=== PATIENT | male | born 1950 | race Caucasian/White ===

== ENCOUNTER → 2024-10-25 11:41 | Outpatient (REF) | payer MEDICARE, SELFPAY | LOC: HWRAD 11:41 | PROVIDERS: ATTENDING PHYSICIAN Family Medicine | DX: R31.0 Gross hematuria (principal) | CPT/HCPCS: 74176 ==

== ENCOUNTER → 2024-10-31 07:48 | Outpatient (REF) | payer MEDICARE, SELFPAY ==
[2024-10-31 09:03] LABS: Hematocrit 43.9 % (39.0-52.0); Hemoglobin 14.8 g/dL (13.0-18.0); Mean Corp Hgb Conc. 33.7 g/dL (33.0-37.0); Mean Corpuscular Hgb 31.1 pg (27.0-31.0); Mean Corpuscular Volume 92.2 fL (80.0-94.0); Mean Platelet Volume 10.3 fL (7.4-10.4); Platelet Count 250 10^3/uL (130-400); Red Blood Cell Count 4.76 10^6/uL (4.70-6.10); White Blood Cell Count 8.2 10^3/uL (4.8-10.8)
[2024-10-31 09:31] LABS: Blood Urea Nitrogen 17 mg/dl (9-20); Carbon Dioxide 29 mmol/L (22-30); Chloride 101 mmol/L (98-107); Glucose 159 mg/dl (70-99); Potassium 4.4 mmol/L (3.5-5.1); Sodium 139 mmol/L (135-145); eGFR > 60.00
== END ==
LOC: SDSPAT 07:48
PROVIDERS: ATTENDING PHYSICIAN Specialist; FAMILY PHYSICIAN Family Medicine
DX: Z01.818 Encounter for other preprocedural examination (principal)
CPT/HCPCS: 36415; 80048; 85027; 93005

== ENCOUNTER 2024-11-08 06:35 | Day surgery (SDC) | payer MEDICARE, SELFPAY ==
[2024-10-31 10:26] VITALS: BMI 26.0
[2024-11-08] VITALS (14 sets, daily range): BP systolic 120–145; BP diastolic 63–84; BMI 26.0
[2024-11-08 10:21] LABS: Glucose - Point of Care 237 mg/dl (70-99)
[2024-11-08] MEDS: NOVOLOG vial 2 UNITS SC (11:08)
[2024-11-08] MEDS: NORMOSOL-R/PLASMALYTE-A 1000 IV (11:09)
[2024-11-08 13:35] LABS: Glucose - Point of Care 140 mg/dl (70-99)
--- NOTE | 2024-11-08 15:45 | PTCARENOTE ---
Pt arrived to 2S in bed. Full assessment completed. CBI infusing per order, pink tinged urine draining. Traction in place, to be released at 1600. Abrasion with bandaid noted to R great toe, preset on admission. Bed locked and in the lowest
position, safety maintained. Oriented to room and call manzanares.
[2024-11-08 15:50] LABS: Glucose - Point of Care 287 mg/dl (70-99)
[2024-11-08] MEDS: NOVOLOG FLEXPEN-LOW RESISTANCE 3 UNITS SC (16:05)
[2024-11-08] MEDS: COLACE 100 MG PO (16:05)
[2024-11-08] MEDS: GLUCOPHAGE 500 MG PO (16:14)
[2024-11-08] MEDS: MICRONASE 5 MG PO (16:55)
[2024-11-08] MEDS: FLOMAX 0.4 MG PO (20:52)
[2024-11-08] MEDS: OMNICEF 300 MG PO (20:52)
[2024-11-08 22:09] LABS: Glucose - Point of Care 363 mg/dl (70-99)
--- NOTE | 2024-11-08 22:40 | PTCARENOTE ---
Patient's blood sugar- 363, Notified house NICOLETTE. No new orders at this time. will recheck close to midnight as per advise
[2024-11-09 00:09] LABS: Glucose - Point of Care 336 mg/dl (70-99)
[2024-11-09] MEDS: NOVOLOG FLEXPEN 5 UNITS SC (00:32)
[2024-11-09 02:27] LABS: Glucose - Point of Care 261 mg/dl (70-99)
[2024-11-09 02:58] VITALS: BP 109/64
[2024-11-09 07:48] LABS: Glucose - Point of Care 190 mg/dl (70-99)
[2024-11-09] MEDS: MICRONASE 5 MG PO (07:55)
[2024-11-09] MEDS: COLACE 100 MG PO (07:55)
[2024-11-09] MEDS: NOVOLOG FLEXPEN-LOW RESISTANCE 1 UNITS SC (07:56)
[2024-11-09] MEDS: OMNICEF 300 MG PO (07:56)
[2024-11-09] MEDS: FARXIGA 10 MG PO (07:56)
[2024-11-09] MEDS: GLUCOPHAGE 500 MG PO (07:56)
[2024-11-09 08:54] VITALS: BP 117/62
[2024-11-09 09:39] LABS: Glycohemoglobin (HgbA1c) 8.1 % (4.0-5.6)
--- NOTE | 2024-11-09 10:12 | W.PN.URO.CBU ---
Today's Communication / Plan
-
discharge
will perform CIC TID - 5x daily to keep volumes < 500 ml
Assessment / Plan
-
no urge to void, as expected
Diagnosis
-
Date of Service: November 09, 2024
-
Patient Diagnosis: Severe Bladder overdistension; BPH; s/p TURP
Post Op Day:1
Subjective
-
'I feel great'
no urge to void
Objective
-
Vital Signs
Temp Pulse Resp BP Pulse Ox
98.0 F 81 16 117/62 96
11/09/24 08:54 11/09/24 08:54 11/09/24 08:54 11/09/24 08:54 11/09/24 08:54
Intake and Output
11/08/24 11/09/24 11/10/24
06:59 06:59 06:59
Intake Total 600 / 600 480 / 480
Output Total 2800 / 2800
Balance -2200 / -2200 480 / 480
Intake:
Oral fluids 600 / 600 480 / 480
Output:
True Urine Output from CBI 2800 / 2800
Physical Exam
-
General - well developed, well nourished, no acute distress
Abdomen - soft, non-tender, positive bowel sounds, no CVAT, no incisional pain or distention
Genitalia - normal
Skin - warm & dry with no rash
Neuro - AOx3, no motor deficits
Extremities - no clubbing, no cyanosis, no edema
[2024-11-09] MEDS: URECHOLINE 50 MG PO (10:39)
--- NOTE | 2024-11-09 11:04 | CM ---
Met with pt at bedside
Pt reports he lives with his in a 2 story home; no steps to enter, 12 steps to 2nd fl
Independent at baseline, works PT, drives
DME - none
SNF/HH - denies past hx
Has ride at discharge
PCP - Dr Markham
Pharm - [facility]
Plan - anticipate home no needs
[2024-11-09 11:10] VITALS: BP 125/57
[2024-11-09 17:45] LABS: Hepatitis C Antibody Negative (Negative)
== END 2024-11-09 11:54 | disposition home or self-care (01) ==
LOC: SDS 06:35
PROVIDERS: Nurse Practitioner Gerontology; ATTENDING PHYSICIAN Specialist
DX: N40.1 Benign prostatic hyperplasia with lower urinary tract symptoms (principal); N39.0 Urinary tract infection, site not specified; N30.90 Cystitis, unspecified without hematuria; R33.8 Other retention of urine
CPT/HCPCS: 52601; 88305; 82962; 83036; 86803

== ENCOUNTER 2025-03-20 06:21 | Day surgery (SDC) | payer MEDICARE, OTHER, SELFPAY ==
[2025-03-20 07:47] LABS: Glucose - Point of Care 196 mg/dl (70-99)
== END 2025-03-20 10:38 | disposition home or self-care (01) ==
LOC: GI 06:21
PROVIDERS: ATTENDING PHYSICIAN Internal Medicine Gastroenterology
DX: Z12.11 Encounter for screening for malignant neoplasm of colon (principal); K57.30 Diverticulosis of large intestine without perforation or abscess without bleeding; K64.8 Other hemorrhoids; D12.2 Benign neoplasm of ascending colon; Z86.0100 Personal history of colon polyps, unspecified
CPT/HCPCS: 45385; 45380; 88305; 82962

== ENCOUNTER → 2025-10-04 13:56 | Outpatient (REF) | payer MEDICARE, OTHER, SELFPAY | LOC: HWRAD 13:56 | PROVIDERS: ATTENDING PHYSICIAN Family Medicine | DX: M79.643 Pain in unspecified hand (principal); M79.89 Other specified soft tissue disorders | CPT/HCPCS: 73130 ==